=== PATIENT | male | born 1985 | race Asian ===

== ENCOUNTER 2022-08-16 01:46 | Emergency (ER) | payer OTHER ==
[~2022-08-16] VITALS: Ht 165.1 cm; Wt 81.8 kg
[2022-08-16 04:51] VITALS: BP 123/81
== END 2022-08-16 04:58 | disposition home or self-care (01) ==
LOC: EMS 01:49
DX: S20.211A Contusion of right front wall of thorax, initial encounter (principal); F17.210 Nicotine dependence, cigarettes, uncomplicated; Z98.890 Other specified postprocedural states; Y04.8XXA Assault by other bodily force, initial encounter; Y93.89 Activity, other specified; Y92.89 Other specified places as the place of occurrence of the external cause; Y99.8 Other external cause status
CPT/HCPCS: 70450; 70486; 71101; 72125; 99284